=== PATIENT | female | born 1965 | race Native Hawaiian/Other Pacific Islander ===

== ENCOUNTER 2019-01-09 10:48 | Emergency (ER) | payer BC ==
[~2019-01-09] VITALS: Ht 157.5 cm; Wt 68.0 kg
[2019-01-09 11:56] LABS: PLATELET COUNT 189 K/uL (152-353)
[2019-01-09 12:45] LABS: POTASSIUM 3.4 mmol/L (3.6-5.2)
[2019-01-09 13:50] VITALS: BP 120/65; TEMP 97.9
== END 2019-01-09 13:50 | disposition home or self-care (01) ==
LOC: ED 10:48
PROVIDERS: Family Medicine
DX: J40 Bronchitis, not specified as acute or chronic (principal); R05 Cough; M94.0 Chondrocostal junction syndrome [Tietze]
CPT/HCPCS: 80053; 85027; 94664; 99283; J1100

== ENCOUNTER 2020-07-14 18:29 | Emergency (ER) | payer OTHER ==
[~2020-07-14] VITALS: Ht 157.5 cm; Wt 54.4 kg
[2020-07-14 19:06] LABS: PLATELET COUNT 279 K/uL (152-353)
[2020-07-14 19:14] LABS: SODIUM 141 mmol/L (136-145)
[2020-07-21 07:15] VITALS: BP 122/66; TEMP 98.1
== END 2020-07-21 15:45 | disposition home or self-care (01) ==
LOC: ED 18:29
PROVIDERS: Emergency Medicine Emergency Medical Services
DX: R45.851 Suicidal ideations (principal); F10.129 Alcohol abuse with intoxication, unspecified; Y90.8 Blood alcohol level of 240 mg/100 ml or more; F32.89 Other specified depressive episodes; Z03.818 Encounter for observation for suspected exposure to other biological agents ruled out
CPT/HCPCS: 36415; 80053; 80307; 80320; 80329; 83735; 84132; 85027; 87635; 93005; 99285; J0456; U0003

== ENCOUNTER 2020-08-01 16:18 | Emergency (ER) | payer OTHER ==
[~2020-08-01] VITALS: Ht 157.5 cm; Wt 54.4 kg
[2020-08-01 17:25] LABS: PLATELET COUNT 263 K/uL (152-353)
[2020-08-01 17:38] LABS: POTASSIUM 3.2 mmol/L (3.6-5.2)
[2020-08-02 10:36] VITALS: TEMP 98.5
[2020-08-02 14:00] VITALS: BP 131/98
== END 2020-08-02 14:45 | disposition still patient (30) ==
LOC: ED 16:18
PROVIDERS: Family Medicine
DX: R45.851 Suicidal ideations (principal); F10.10 Alcohol abuse, uncomplicated; Y90.8 Blood alcohol level of 240 mg/100 ml or more; Z03.818 Encounter for observation for suspected exposure to other biological agents ruled out
CPT/HCPCS: 80053; 80307; 80320; 80329; 81000; 85027; 87635; 93005; 96360; 99285; U0003

== ENCOUNTER 2020-09-11 15:25 | Emergency (ER) | payer OTHER ==
[~2020-09-11] VITALS: Ht 157.5 cm; Wt 54.4 kg
[2020-09-11 16:43] LABS: PLATELET COUNT 233 K/uL (152-353); POTASSIUM 3.8 mmol/L (3.6-5.2); SODIUM 144 mmol/L (136-145)
[2020-09-12 06:45] VITALS: BP 136/79; TEMP 97.8
== END 2020-09-12 07:26 | disposition other institution (70) ==
LOC: ED 15:26
PROVIDERS: Emergency Medicine Emergency Medical Services
DX: F10.20 Alcohol dependence, uncomplicated (principal); Y90.8 Blood alcohol level of 240 mg/100 ml or more; R45.851 Suicidal ideations; Z03.818 Encounter for observation for suspected exposure to other biological agents ruled out
CPT/HCPCS: 36415; 80053; 80307; 80320; 80329; 81000; 84484; 85027; 87635; 93005; 96360; 96361; 96375; 99285; J2060; U0003